=== PATIENT | male | born 1985 | race Caucasian/White ===

== ENCOUNTER 2017-05-28 12:26 | Emergency (ER) | payer MEDICARE, MEDICAID ==
[~2017-05-28] VITALS: Ht 167.6 cm; Wt 80.0 kg
[~2017-05-28 12:26] MED LIST: CLIN-79 PO; CYCL-1 PO; DIAZ5TAB PO; GABA600T2 PO; HYDR-569 PO; LORA-269 PO; NAPR500T4 PO; TRAZ150T78 PO
[2017-05-28] MEDS ORDERED: HYDR-569 PO (13:24)
[2017-05-28 14:09] VITALS: BP 121/65
== END 2017-05-28 14:10 | disposition home or self-care (01) ==
LOC: ER 12:27
DX: S80.02XA Contusion of left knee, initial encounter (principal); M25.562 Pain in left knee; G89.29 Other chronic pain; Z88.1 Allergy status to other antibiotic agents; V09.9XXA Pedestrian injured in unspecified transport accident, initial encounter; Y93.89 Activity, other specified; Y92.481 Parking lot as the place of occurrence of the external cause; Y99.9 Unspecified external cause status
CPT/HCPCS: 29505; 73564; 99284

== ENCOUNTER 2017-09-18 18:36 | Emergency (ER) | payer MEDICARE, MEDICAID ==
[~2017-09-18] VITALS: Ht 182781.3 cm; Wt 95.0 kg
[~2017-09-18 18:36] MED LIST changes: +NAPR-996 PO; -NAPR500T4 PO
[2017-09-18] MEDS ORDERED: diphenhydrAMINE 50 mg/ml inj IM ONE (19:35)
[2017-09-18] MEDS ORDERED: LORazepam 2 mg/ml vial IM ONE (19:35)
[2017-09-18] MEDS ORDERED: haloperidol lactate 5mg/ml inj IM ONE (19:35)
[2017-09-18 20:14] LABS: BASOPHILS # (AUTO) 0.1 X10'3 (0-0.2); BASOPHILS % (AUTO) 0.6 % (0-1); EOSINOPHILS # (AUTO) 0.1 X10'3 (0-0.9); EOSINOPHILS % (AUTO) 1.6 % (0-6); HEMATOCRIT 49.5 % (42.0-52.0); LYMPHOCYTES # (AUTO) 2.4 X10'3 (1.1-4.8); LYMPHOCYTES % (AUTO) 26.5 % (21-51); MEAN CORPUSCULAR HEMOGLOBIN 30.8 PG (27.0-31.0); MEAN CORPUSCULAR HGB CONC 34.4 % (33.0-36.5); MEAN CORPUSCULAR VOLUME 89.5 FL (78-98); MEAN PLATELET VOLUME 6.1 FL (7.4-10.4); MONOCYTES # (AUTO) 0.5 X10'3 (0-0.9); MONOCYTES % (AUTO) 5.6 % (2-12); NEUTROPHILS # (AUTO) 5.8 X10'3 (1.8-7.7); NEUTROPHILS % (AUTO) 65.7 % (42-75); PLATELET COUNT 408 X10'3 (140-440); RED BLOOD COUNT 5.53 X10'6 (4.70-6.10); RED CELL DISTRIBUTION WIDTH 12.7 % (11.5-14.5); WHITE BLOOD COUNT 8.9 X10'3 (4.5-11.0)
[2017-09-18] MEDS ORDERED: diphenhydrAMINE 50 mg/ml inj IV ONE (20:20)
[2017-09-18] MEDS ORDERED: LORazepam 2 mg/ml vial IV ONE (20:20)
[2017-09-18] MEDS: haloperidol lactate 5mg/ml inj IM ONE ×2 (20:20→20:23)
[2017-09-18 20:37] LABS: ALANINE AMINOTRANSFERASE 34 U/L (12-78); ALBUMIN 4.4 G/DL (3.4-5.0); ALBUMIN/GLOBULIN RATIO 1.3 (1.1-1.5); ALKALINE PHOSPHATASE 68 IU/L (46-116); ANION GAP 17 (8-16); ASPARTATE AMINO TRANSFERASE 25 U/L (10-37); BILIRUBIN,TOTAL 0.6 MG/DL (0.1-1.0); BLOOD UREA NITROGEN 23 MG/DL (7-18); BUN/CREATININE RATIO 16.7 (5.4-32.0); CALCIUM 9.5 MG/DL (8.5-10.1); CHLORIDE 106 MMOL/L (99-107); CREATININE 1.38 MG/DL (0.60-1.10); ETHANOL < 0.010 GM/DL (0.0-0.010); GLUCOSE 104 MG/DL (70-104); SODIUM 146 MMOL/L (135-145); TOTAL PROTEIN 7.8 G/DL (6.4-8.2); eGFR 59 ML/MIN
[2017-09-18 20:39] LABS: POTASSIUM 3.9 MMOL/L (3.5-5.1)
[2017-09-18] MEDS ORDERED: normal saline 1000ml 1,000 ML IV ONE (20:55)
[2017-09-18 23:54] LABS: CLARITY,URINE CLEAR (Clear); COLOR,URINE YELLOW (Yellow); GLUCOSE, URINE NEGATIVE (Neg); KETONES,URINE TRACE mg/dl (Neg); LEUKOCYTE ESTERASE ,URINE NEGATIVE (Neg); NITRITES, URINE NEGATIVE (Neg); OCCULT BLOOD,URINE TRACE-INTACT (Neg); PROTEIN,URINE NEGATIVE (Neg); UROBILINOGEN,URINE 0.2 E.U/dL (0.2-1.0)
[2017-09-18 23:55] LABS: UA COLLECTION TYPE STRAIGHT CATH
[2017-09-19 00:02] LABS: URINE AMPHETAMINE SCREEN POSITIVE (Neg); URINE BARBITUATE SCREEN NEGATIVE (Neg); URINE BENZODIAZEPINES SCREEN NEGATIVE (Neg); URINE CANNABINOID SCREEN NEGATIVE (Neg); URINE COCAINE SCREEN NEGATIVE (Neg); URINE METHADONE SCREEN NEGATIVE (Neg); URINE OPIATE SCREEN NEGATIVE (Neg); URINE PHENCYCLIDINE SCREEN NEGATIVE (Neg)
[2017-09-19 00:03] LABS: SQUAMOUS EPITHELIAL CELL,UR FEW /LPF (FEW)
[2017-09-19 00:04] LABS: BACTERIA,URINE FEW /HPF (Neg); MUCUS STRANDS FEW /LPF (Neg); WBC,URINE 0-4 /HPF (0-4)
[2017-09-19] MEDS ORDERED: ESCI10TA54 PO (04:34)
[2017-09-19] MEDS ORDERED: VARE1TAB21 PO (04:34)
[2017-09-19] MEDS ORDERED: OLAN5TAB26 PO (04:34)
[2017-09-19] MEDS ORDERED: DEXT20TA6 PO (04:34)
[2017-09-19] MEDS ORDERED: ARIP10TA17 PO (04:34)
[2017-09-19] MEDS ORDERED: SILD100T (04:34)
[2017-09-19] MEDS: dextroamphetamine/amphetamine 10mg tablet PO SCH ×2 (07:30→12:30)
[2017-09-19] MEDS: citalopram 20mg tablet PO SCH (08:00)
[2017-09-19] MEDS ORDERED: aripiprazole 5mg tablet PO SCH (08:00)
[2017-09-19] MEDS: varenicline tartrate 0.5mg tablet PO SCH ×2 (08:00→20:12)
[2017-09-19] MEDS ORDERED: OLANZapine 5mg rapidly disint. tablet PO SCH (08:00)
[2017-09-20] MEDS: citalopram 20mg tablet PO SCH ×2 (08:00→14:25)
[2017-09-20] MEDS: varenicline tartrate 0.5mg tablet PO SCH ×3 (08:00→20:00)
[2017-09-20] MEDS: OLANZapine 5mg rapidly disint. tablet PO SCH ×2 (08:00→14:30)
[2017-09-20] MEDS ORDERED: ziprasidone IM 20mg inj **IM only IM ONE (08:15)
[2017-09-21] MEDS ORDERED: OLANZapine 5mg rapidly disint. tablet PO SCH (08:00)
[2017-09-21] MEDS: varenicline tartrate 0.5mg tablet PO SCH (09:51)
[2017-09-21] MEDS: citalopram 20mg tablet PO SCH (09:51)
[2017-09-21] MEDS ORDERED: CITA20TA19 PO (14:53)
[2017-09-21 15:57] VITALS: BP 104/66
== END 2017-09-21 16:01 | disposition home or self-care (01) ==
LOC: ER 18:36
DX: F31.9 Bipolar disorder, unspecified (principal); F41.9 Anxiety disorder, unspecified; F23 Brief psychotic disorder; N19 Unspecified kidney failure; G89.29 Other chronic pain; Z56.0 Unemployment, unspecified; Z88.1 Allergy status to other antibiotic agents; Z79.899 Other long term (current) drug therapy
CPT/HCPCS: 36415; 80053; 80305; 80320; 81001; 84443; 85025; 96361; 96372; 96374; 96375; 99284; A4353; J1200; J1630; J2060; J7030

== ENCOUNTER 2017-09-21 12:10 | Inpatient (IN) | payer MEDICARE, MEDICAID ==
[~2017-09-21] VITALS: Ht 167.6 cm; Wt 83.4 kg
[~2017-09-21 12:10] MED LIST changes: +ARIP10TA17 PO; -CLIN-79 PO; -CYCL-1 PO; +DEXT20TA6 PO; -DIAZ5TAB PO; +ESCI10TA54 PO; -GABA600T2 PO; -HYDR-569 PO; -LORA-269 PO; -NAPR-996 PO; +OLAN5TAB26 PO; -TRAZ150T78 PO; +VARE1TAB21 PO
[2017-09-21] MEDS ORDERED: CITA20TA19 PO (14:53)
[2017-09-21 16:00] VITALS: BP 132/84
[2017-09-21 19:20] VITALS: BP 90/46
[2017-09-21] MEDS: varenicline tartrate 0.5mg tablet PO SCH (19:21)
[2017-09-21] MEDS: olanzapine 10mg tablet PO SCH (19:21)
[2017-09-22] MEDS: citalopram 20mg tablet PO SCH (07:27)
[2017-09-22] MEDS: varenicline tartrate 0.5mg tablet PO SCH ×2 (07:27→21:23)
[2017-09-22] MEDS: olanzapine 10mg tablet PO SCH ×2 (07:27→21:22)
[2017-09-22 08:00] VITALS: BP 107/67
[2017-09-22 08:38] LABS: CHOL/HDL RATIO 5.7 (0.00-4.99); CHOLESTEROL 212 MG/DL (0-200); HDL CHOLESTEROL 37 MG/DL (35-60); LDL CHOLESTEROL 150 MG/DL (50-100); TRIGLYCERIDES 110 MG/DL (20-135)
[2017-09-22 08:45] LABS: HEMOGLOBIN A1C 5.7 % (4.5-6.2)
[2017-09-22 09:25] LABS: ALANINE AMINOTRANSFERASE 37 U/L (12-78); ALBUMIN 3.4 G/DL (3.4-5.0); ALBUMIN/GLOBULIN RATIO 1.1 (1.1-1.5); ALKALINE PHOSPHATASE 60 IU/L (46-116); ANION GAP 10 (8-16); ASPARTATE AMINO TRANSFERASE 24 U/L (10-37); BILIRUBIN,TOTAL 0.3 MG/DL (0.1-1.0); BLOOD UREA NITROGEN 17 MG/DL (7-18); BUN/CREATININE RATIO 16.8 (5.4-32.0); CALCIUM 8.7 MG/DL (8.5-10.1); CHLORIDE 107 MMOL/L (99-107); CREATININE 1.01 MG/DL (0.60-1.10); GLUCOSE 85 MG/DL (70-104); POTASSIUM 4.2 MMOL/L (3.5-5.1); SODIUM 144 MMOL/L (135-145); TOTAL CARBON DIOXIDE 27.2 MMOL/L (24-32); TOTAL PROTEIN 6.6 G/DL (6.4-8.2); eGFR 85 ML/MIN
[2017-09-22] MEDS: gabapentin 300mg capsule PO SCH ×2 (13:37→21:22)
[2017-09-22 20:10] VITALS: BP 92/45
[2017-09-23 08:00] VITALS: BP 107/66
[2017-09-23] MEDS: varenicline tartrate 0.5mg tablet PO SCH ×2 (08:30→20:35)
[2017-09-23] MEDS: citalopram 20mg tablet PO SCH (08:30)
[2017-09-23] MEDS: gabapentin 300mg capsule PO SCH ×3 (08:30→20:35)
[2017-09-23] MEDS: olanzapine 10mg tablet PO SCH (20:35)
[2017-09-23 20:39] VITALS: BP 108/61
[2017-09-24] MEDS: citalopram 20mg tablet PO SCH (07:41)
[2017-09-24] MEDS: gabapentin 300mg capsule PO SCH ×3 (07:41→20:27)
[2017-09-24] MEDS: varenicline tartrate 0.5mg tablet PO SCH ×2 (07:42→20:27)
[2017-09-24 08:59] VITALS: BP 107/76
[2017-09-24] MEDS: clonazePAM 1mg tablet PO PRN ×3 (10:40→22:49)
[2017-09-24] MEDS: ibuprofen tablet 400 MG TABLET PO PRN (12:29)
[2017-09-24 19:15] VITALS: BP 125/79
[2017-09-24] MEDS: olanzapine 10mg tablet PO SCH (20:27)
[2017-09-25] MEDS: clonazePAM 1mg tablet PO PRN ×3 (07:38→19:36)
[2017-09-25] MEDS: varenicline tartrate 0.5mg tablet PO SCH (07:38)
[2017-09-25] MEDS: gabapentin 300mg capsule PO SCH ×2 (07:38→12:56)
[2017-09-25] MEDS: citalopram 20mg tablet PO SCH (07:38)
[2017-09-25 08:01] VITALS: BP 125/91
[2017-09-25] MEDS ORDERED: OLANZapine 5mg rapidly disint. tablet PO PRN ×2 (15:00→17:00)
[2017-09-25] MEDS ORDERED: LORazepam 1 MG tablet PO ONE ×2 (15:00→17:00)
[2017-09-25] MEDS ORDERED: haloperidol lactate 5mg/ml inj IM ONE ×2 (18:10→18:11)
[2017-09-25] MEDS ORDERED: benztropine 1 mg/ml 2ml ampule IM PRN (18:10)
[2017-09-25] MEDS ORDERED: benztropine 1 mg/ml 2ml ampule IM ONE (18:10)
[2017-09-25] MEDS ORDERED: benztropine 1 mg/ml 2ml ampule ONE (18:11)
[2017-09-25 19:55] VITALS: BP 94/52
[2017-09-26] MEDS: gabapentin 400mg capsule PO SCH ×5 (00:10→21:58)
[2017-09-26] MEDS: OLANZapine 5mg rapidly disint. tablet PO SCH ×2 (08:09→11:37)
[2017-09-26] MEDS: citalopram 20mg tablet PO SCH (08:09)
[2017-09-26] MEDS: clonazePAM 1mg tablet PO PRN (08:15)
[2017-09-26 08:40] VITALS: BP 119/72
[2017-09-26] MEDS ORDERED: clonazePAM 1mg tablet PO PRN (16:00)
[2017-09-26] MEDS: ibuprofen tablet 400 MG TABLET PO PRN (16:30)
[2017-09-26] MEDS: haloperidol lactate 5mg/ml inj IM PRN (17:56)
[2017-09-26] MEDS ORDERED: magnesium hydroxide 30ml (MOM) UD suspension PO PRN (19:15)
[2017-09-26] MEDS ORDERED: mag hydrox/Alum hydrox/simeth 30ml oral suspension PO PRN (19:15)
[2017-09-26] MEDS ORDERED: acetaminophen 325mg tablet PO PRN (19:15)
[2017-09-26 19:47] VITALS: BP 94/50
[2017-09-26] MEDS ORDERED: clonazePAM 1mg tablet PO SCH (20:00)
[2017-09-26] MEDS ORDERED: olanzapine 10mg tablet PO SCH (21:00)
[2017-09-26 22:00] VITALS: BP 115/70
[2017-09-26] MEDS: acetaminophen 325mg tablet PO PRN (22:03)
[2017-09-27 07:48] VITALS: BP 136/72
[2017-09-27] MEDS: gabapentin 400mg capsule PO SCH ×3 (08:20→20:08)
[2017-09-27] MEDS: clonazePAM 1mg tablet PO SCH ×3 (08:21→20:08)
[2017-09-27] MEDS: ibuprofen tablet 400 MG TABLET PO PRN (08:21)
[2017-09-27] MEDS: haloperidol 5mg tablet PO SCH ×2 (08:21→14:19)
[2017-09-27] MEDS: citalopram 20mg tablet PO SCH (08:21)
[2017-09-27] MEDS ORDERED: diphenhydrAMINE 50 mg/ml inj IM SCH (11:05)
[2017-09-27] MEDS ORDERED: diphenhydrAMINE 50 mg/ml inj IM PRN (11:25)
[2017-09-27] MEDS: haloperidol lactate 5mg/ml inj IM PRN (15:39)
[2017-09-27] MEDS: LIDOcaine 5% patch TP SCH (15:40)
[2017-09-27 16:03] VITALS: BP 112/72
[2017-09-27 19:15] VITALS: BP 126/79
[2017-09-27] MEDS: OLANZapine 5mg rapidly disint. tablet PO SCH (20:09)
[2017-09-27] MEDS: acetaminophen 325mg tablet PO PRN (20:10)
[2017-09-28] MEDS: haloperidol 5mg tablet PO SCH ×3 (07:30→12:33)
[2017-09-28 08:00] VITALS: BP 116/72
[2017-09-28] MEDS: LIDOcaine 5% patch TP SCH (08:59)
[2017-09-28] MEDS: clonazePAM 1mg tablet PO SCH ×3 (08:59→20:48)
[2017-09-28] MEDS: citalopram 20mg tablet PO SCH (08:59)
[2017-09-28] MEDS: gabapentin 400mg capsule PO SCH ×3 (08:59→20:48)
[2017-09-28 19:19] VITALS: BP 119/73
[2017-09-28] MEDS: OLANZapine 5mg rapidly disint. tablet PO SCH (20:48)
[2017-09-29 08:00] VITALS: BP 135/83
[2017-09-29] MEDS: citalopram 20mg tablet PO SCH (09:25)
[2017-09-29] MEDS: gabapentin 400mg capsule PO SCH ×3 (09:25→20:21)
[2017-09-29] MEDS: clonazePAM 1mg tablet PO SCH ×3 (09:25→18:08)
[2017-09-29] MEDS: haloperidol 5mg tablet PO SCH ×2 (09:25→13:19)
[2017-09-29] MEDS: LIDOcaine 5% patch TP SCH (09:26)
[2017-09-29] MEDS ORDERED: clonazePAM 1mg tablet PO ONE (10:30)
[2017-09-29 20:02] VITALS: BP 105/65
[2017-09-29] MEDS: ibuprofen tablet 400 MG TABLET PO PRN (20:20)
[2017-09-29] MEDS: haloperidol 5mg tablet PO PRN (20:21)
[2017-09-29] MEDS: OLANZapine 5mg rapidly disint. tablet PO SCH (20:21)
[2017-09-30 08:00] VITALS: BP 133/81
[2017-09-30] MEDS: LIDOcaine 5% patch TP SCH (08:24)
[2017-09-30] MEDS: citalopram 20mg tablet PO SCH (08:24)
[2017-09-30] MEDS: clonazePAM 1mg tablet PO SCH ×3 (08:24→21:00)
[2017-09-30] MEDS: gabapentin 400mg capsule PO SCH ×3 (08:25→21:30)
[2017-09-30] MEDS: haloperidol 5mg tablet PO SCH ×2 (08:25→13:17)
[2017-09-30] MEDS: haloperidol 5mg tablet PO PRN (17:11)
[2017-09-30 20:00] VITALS: BP 122/62
[2017-09-30] MEDS: OLANZapine 5mg rapidly disint. tablet PO SCH (21:00)
[2017-09-30 21:58] VITALS: BP 93/50
[2017-10-01] MEDS ORDERED: GABA-534 PO (07:48)
[2017-10-01] MEDS ORDERED: CITA20TA11 PO (07:48)
[2017-10-01] MEDS ORDERED: CLON0.5T23 PO (07:48)
[2017-10-01] MEDS ORDERED: OLAN5TAB29 PO (07:48)
[2017-10-01] MEDS ORDERED: HALO5TAB PO (07:48)
[2017-10-01] MEDS: haloperidol 5mg tablet PO SCH (07:51)
[2017-10-01 08:00] VITALS: BP 133/87
[2017-10-01] MEDS: clonazePAM 1mg tablet PO SCH (08:07)
[2017-10-01] MEDS: gabapentin 400mg capsule PO SCH (08:07)
[2017-10-01] MEDS: citalopram 20mg tablet PO SCH (08:07)
== END 2017-10-01 10:45 | disposition home or self-care (01) | DRG 885 ==
LOC: ADULT MH 12:10
PROVIDERS: ADMIT Psychiatry & Neurology Psychiatry; ATTEND Psychiatry & Neurology Psychiatry
DX: F29 Unspecified psychosis not due to a substance or known physiological condition (principal); E87.0 Hyperosmolality and hypernatremia; M54.9 Dorsalgia, unspecified; F20.9 Schizophrenia, unspecified; F31.9 Bipolar disorder, unspecified; F41.9 Anxiety disorder, unspecified; G89.29 Other chronic pain; N28.9 Disorder of kidney and ureter, unspecified; F15.10 Other stimulant abuse, uncomplicated; Z79.899 Other long term (current) drug therapy; Z87.891 Personal history of nicotine dependence; Z78.1 Physical restraint status
CPT/HCPCS: 36415; 71110; 80053; 80061; 83036; 87070; 99285; J0515; J1200; J1630; J3490

== ENCOUNTER 2018-12-25 14:34 | Emergency (ER) | payer MEDICARE ==
[~2018-12-25] VITALS: Ht 167.6 cm; Wt 82.7 kg
[~2018-12-25 14:34] MED LIST changes: -ARIP10TA17 PO; +ARIP5TAB4 PO; +CITA20TA19 PO; +CLON0.5T12 PO; -DEXT20TA6 PO; -ESCI10TA54 PO; +GABA-534 PO; +HALO5TAB PO; -OLAN5TAB26 PO; +OLAN5TAB5 PO; -VARE1TAB21 PO
[2018-12-25 16:00] LABS: BASOPHILS % (AUTO) 0.5 % (0-1); EOSINOPHILS # (AUTO) 0.2 X10'3 (0-0.9); EOSINOPHILS % (AUTO) 2.1 % (0-6); HEMATOCRIT 42.7 % (42.0-52.0); LYMPHOCYTES % (AUTO) 26.9 % (21-51); MEAN CORPUSCULAR HEMOGLOBIN 30.9 PG (27.0-31.0); MEAN CORPUSCULAR VOLUME 88.2 FL (78-98); MEAN PLATELET VOLUME 6.2 FL (7.4-10.4); MONOCYTES # (AUTO) 0.4 X10'3 (0-0.9); MONOCYTES % (AUTO) 5.3 % (2-12); NEUTROPHILS # (AUTO) 4.9 X10'3 (1.8-7.7); NEUTROPHILS % (AUTO) 65.2 % (42-75); PLATELET COUNT 400 X10'3 (140-440); RED BLOOD COUNT 4.85 X10'6 (4.70-6.10); RED CELL DISTRIBUTION WIDTH 13.5 % (11.5-14.5); WHITE BLOOD COUNT 7.5 X10'3 (4.5-11.0)
[2018-12-25 16:24] LABS: ALANINE AMINOTRANSFERASE 60 U/L (12-78); ALBUMIN 3.6 G/DL (3.4-5.0); ALBUMIN/GLOBULIN RATIO 1.1 (1.1-1.5); ALKALINE PHOSPHATASE 97 IU/L (46-116); ANION GAP 9 (8-16); ASPARTATE AMINO TRANSFERASE 30 U/L (10-37); BILIRUBIN,TOTAL 0.2 MG/DL (0.1-1.0); BLOOD UREA NITROGEN 13 MG/DL (7-18); BUN/CREATININE RATIO 12.6 (5.4-32.0); CHLORIDE 103 MMOL/L (99-107); CREATININE 1.03 MG/DL (0.60-1.10); GLUCOSE 99 MG/DL (70-104); POTASSIUM 3.8 MMOL/L (3.5-5.1); SODIUM 138 MMOL/L (135-145); TOTAL CARBON DIOXIDE 26.2 MMOL/L (24-32); TOTAL PROTEIN 6.8 G/DL (6.4-8.2); eGFR 82 ML/MIN
[2018-12-25 16:59] LABS: PARTIAL THROMBOPLASTIN TIME 27 SECONDS (22-32)
--- NOTE | 2018-12-25 18:13 | NUR ---
pt is resting quietly on gurney
--- NOTE | 2018-12-25 18:43 | NUR ---
pt c/o chest pain, "I have anxiety...lots of stress in my life...just started to see an therapist because I have anxiety", pt denies recent drug/ETOH use, waiting to be evaluated by provider, rags laborer at bedside to eval pt
[2018-12-25] MEDS ORDERED: clonazePAM 1mg tablet PO ONE (21:05)
[2018-12-25] MEDS ORDERED: diazepam 5mg tablet PO ONE (21:15)
[2018-12-25 21:16] VITALS: BP 118/87
[2018-12-25] MEDS ORDERED: CLON-527 PO (21:16)
== END 2018-12-25 21:30 | disposition home or self-care (01) ==
LOC: ER 14:35
DX: F41.9 Anxiety disorder, unspecified (principal); R07.89 Other chest pain; F15.10 Other stimulant abuse, uncomplicated; G89.29 Other chronic pain; F31.9 Bipolar disorder, unspecified; F20.9 Schizophrenia, unspecified; Z59.0 Homelessness; Z56.0 Unemployment, unspecified; Z88.1 Allergy status to other antibiotic agents; Z79.899 Other long term (current) drug therapy
CPT/HCPCS: 36415; 71045; 80053; 84484; 85025; 85610; 85730; 93005; 99284

== ENCOUNTER 2018-12-27 09:40 | Emergency (ER) | payer MEDICARE ==
[~2018-12-27] VITALS: Ht 167.6 cm; Wt 86.4 kg
[~2018-12-27 09:40] MED LIST changes: +CLON-527 PO
[2018-12-27] MEDS ORDERED: acetaminophen 325mg tablet PO ONE (09:45)
[2018-12-27] MEDS ORDERED: PANT-47 PO (10:42)
[2018-12-27 11:00] VITALS: BP 122/52
--- NOTE | 2018-12-27 11:24 | NUR ---
Attempted to DC patient on 3 occasions and patient was insistant that he could not leave with out being given valium. MD informed and security contacted to assist in discharging patient. MD spoke with patient and pt was discharged with security standing by.
== END 2018-12-27 11:28 | disposition home or self-care (01) ==
LOC: ER 09:40
DX: R07.89 Other chest pain (principal); G89.29 Other chronic pain; F41.9 Anxiety disorder, unspecified; F31.9 Bipolar disorder, unspecified; F20.9 Schizophrenia, unspecified; F17.200 Nicotine dependence, unspecified, uncomplicated; F15.90 Other stimulant use, unspecified, uncomplicated; Z59.0 Homelessness; Z56.0 Unemployment, unspecified; Z88.1 Allergy status to other antibiotic agents; Z79.899 Other long term (current) drug therapy
CPT/HCPCS: 71046; 93005; 99283

== ENCOUNTER 2019-03-13 07:40 | Emergency (ER) | payer MEDICARE, OTHER ==
[~2019-03-13] VITALS: Ht 167.6 cm; Wt 70.0 kg
[~2019-03-13 07:40] MED LIST changes: +ARIP5TAB14 PO; -ARIP5TAB4 PO; -CLON0.5T12 PO; +CLON0.5T4 PO; +PANT-47 PO
[2019-03-13] MEDS ORDERED: CefTRIAXone 2gm/D5W 50ml 50 ML IV ONE (09:20)
[2019-03-13] MEDS ORDERED: vancomycin/NS 1 GM ADD-VANTAGE 250 ML IV ONE (09:20)
[2019-03-13 09:56] LABS: BASOPHILS % (AUTO) 0.7 % (0-1); EOSINOPHILS # (AUTO) 0.2 X10'3 (0-0.9); EOSINOPHILS % (AUTO) 3.6 % (0-6); HEMATOCRIT 44.9 % (42.0-52.0); HEMOGLOBIN 15.8 g/dl (14.0-17.9); LYMPHOCYTES # (AUTO) 1.2 X10'3 (1.1-4.8); LYMPHOCYTES % (AUTO) 18.3 % (21-51); MEAN CORPUSCULAR HGB CONC 35.1 g/dL (33.0-36.5); MEAN CORPUSCULAR VOLUME 88.2 FL (78-98); MONOCYTES # (AUTO) 0.3 X10'3 (0-0.9); MONOCYTES % (AUTO) 5.2 % (2-12); NEUTROPHILS # (AUTO) 4.8 X10'3 (1.8-7.7); NEUTROPHILS % (AUTO) 72.2 % (42-75); PLATELET COUNT 400 X10'3 (140-440); RED BLOOD COUNT 5.09 X10'6 (4.70-6.10); RED CELL DISTRIBUTION WIDTH 12.8 % (11.5-14.5); WHITE BLOOD COUNT 6.6 X10'3 (4.5-11.0)
[2019-03-13 09:59] LABS: ALANINE AMINOTRANSFERASE 34 U/L (12-78); ALBUMIN 3.8 G/DL (3.4-5.0); ALBUMIN/GLOBULIN RATIO 1.3 (1.1-1.5); ALKALINE PHOSPHATASE 65 IU/L (46-116); ANION GAP 8 (8-16); ASPARTATE AMINO TRANSFERASE 20 U/L (10-37); BILIRUBIN,TOTAL 0.4 MG/DL (0.1-1.0); BLOOD UREA NITROGEN 16 MG/DL (7-18); BUN/CREATININE RATIO 15.5 (5.4-32.0); CALCIUM 9.3 MG/DL (8.5-10.1); CHLORIDE 107 MMOL/L (99-107); CREATININE 1.03 MG/DL (0.60-1.10); GLUCOSE 104 MG/DL (70-104); POTASSIUM 4.3 MMOL/L (3.5-5.1); SODIUM 142 MMOL/L (135-145); TOTAL CARBON DIOXIDE 27.1 MMOL/L (24-32); TOTAL PROTEIN 6.8 G/DL (6.4-8.2); eGFR 82 ML/MIN
[2019-03-13] MEDS ORDERED: CEPH-572 PO (10:09)
[2019-03-13] MEDS ORDERED: ONDA4TAB6 PO (10:09)
[2019-03-13] MEDS ORDERED: SULF1TAB49 PO (10:09)
[2019-03-13] MEDS ORDERED: HYDR-3965 PO (10:09)
[2019-03-13] MEDS ORDERED: ketorolac tromethamine 15mg/ml inj. IV ONE (11:00)
[2019-03-13] MEDS ORDERED: ondansetron/PF 4mg/2ml inj IV ONE (12:55)
[2019-03-13] MEDS ORDERED: HYDROcodone/acetaminophen 10/325mg tab PO ONE (12:55)
[2019-03-13 13:17] VITALS: BP 130/80
== END 2019-03-13 13:18 | disposition home or self-care (01) ==
LOC: ER 07:40
DX: S63.592A Other specified sprain of left wrist, initial encounter (principal); S61.217A Laceration without foreign body of left little finger without damage to nail, initial encounter; G89.29 Other chronic pain; F41.9 Anxiety disorder, unspecified; F31.9 Bipolar disorder, unspecified; F20.9 Schizophrenia, unspecified; F15.90 Other stimulant use, unspecified, uncomplicated; Z56.0 Unemployment, unspecified; Z59.0 Homelessness; Z88.1 Allergy status to other antibiotic agents; Z79.2 Long term (current) use of antibiotics; Z79.899 Other long term (current) drug therapy; W26.0XXA Contact with knife, initial encounter; Y93.89 Activity, other specified; Y92.89 Other specified places as the place of occurrence of the external cause; Y99.8 Other external cause status
CPT/HCPCS: 29125; 36415; 73110; 73130; 80053; 84145; 85025; 96365; 96368; 96375; 99284; J0696; J1885; J2405; J3370

== ENCOUNTER 2019-03-16 01:10 | Emergency (ER) | payer MEDICARE, OTHER ==
[~2019-03-16] VITALS: Ht 167.6 cm; Wt 76.3 kg
[~2019-03-16 01:10] MED LIST changes: -ARIP5TAB14 PO; +CEPH-572 PO; -CITA20TA19 PO; -CLON-527 PO; +CLON0.5T12 PO; -CLON0.5T4 PO; -GABA-534 PO; -HALO5TAB PO; +HYDR-3965 PO; -OLAN5TAB5 PO; +ONDA4TAB6 PO; -PANT-47 PO; +SULF1TAB49 PO
[2019-03-16] MEDS ORDERED: morphine 4 MG/ML inj SYRINge IM ONE (01:55)
[2019-03-16] MEDS ORDERED: LORazepam 1 MG tablet PO ONE (01:55)
[2019-03-16] MEDS ORDERED: morphine 10mg/ml inj. IM ONE (01:55)
--- NOTE | 2019-03-16 02:12 | NUR ---
medicated pt with 4 mg of morphine im to right glute. also medicated with ativan for anxiety. will reassess once medication takes effect .
--- NOTE | 2019-03-16 03:04 | NUR ---
pt left arm splint and sling removed as ordered . pt rates pain 3-4 out of [address] Davis aware sling and splint have been removed. pt updated poc awaitkiah talbert at this time
[2019-03-16] MEDS ORDERED: HYDR-4353 PO (04:04)
--- NOTE | 2019-03-16 04:15 | NUR ---
pts sling and splint reapplied by instrumentation technologist. pt ambulatory to restroom without assist/difficulty. Pt currently awaiting transport home via his .
[2019-03-16 04:51] VITALS: BP 138/57
== END 2019-03-16 04:25 | disposition home or self-care (01) ==
LOC: ER 01:11
DX: R07.89 Other chest pain (principal); M79.602 Pain in left arm; G89.29 Other chronic pain; F41.9 Anxiety disorder, unspecified; F31.9 Bipolar disorder, unspecified; F20.9 Schizophrenia, unspecified; F17.200 Nicotine dependence, unspecified, uncomplicated; F15.90 Other stimulant use, unspecified, uncomplicated; Z56.0 Unemployment, unspecified; Z59.0 Homelessness; Z88.1 Allergy status to other antibiotic agents; Z79.2 Long term (current) use of antibiotics; Z79.899 Other long term (current) drug therapy
CPT/HCPCS: 29125; 71045; 93005; 96372; 99283; J2270

== ENCOUNTER 2019-03-17 14:22 | Emergency (ER) | payer MEDICARE, OTHER ==
[~2019-03-17] VITALS: Ht 167.6 cm; Wt 74.1 kg
[~2019-03-17 14:22] MED LIST changes: +HYDR-4353 PO
[2019-03-17 15:10] VITALS: BP 136/72
[2019-03-17] MEDS ORDERED: HYDROcodone/acetaminophen 5mg/325mg tablet PO ONE (16:20)
== END 2019-03-17 17:42 | disposition home or self-care (01) ==
LOC: ER 14:22
DX: M25.532 Pain in left wrist (principal); M79.602 Pain in left arm; G89.29 Other chronic pain; F15.90 Other stimulant use, unspecified, uncomplicated; Z59.0 Homelessness; Z56.0 Unemployment, unspecified; Z79.899 Other long term (current) drug therapy; Z88.1 Allergy status to other antibiotic agents
CPT/HCPCS: 29125; 99283

== ENCOUNTER 2019-03-19 17:49 | Emergency (ER) | payer MEDICARE, OTHER ==
[~2019-03-19] VITALS: Ht 167.6 cm; Wt 81.0 kg
--- NOTE | 2019-03-19 18:26 | NUR ---
PATIENT HERE FOR 1. A DOCTOR'S NOTE: FOR HIS JOB AT [employer] WHERE HE HAS WORKED FOR THREE MONTHS AND IS CLAIMING WORKERS COMP FOR THIS INJURY 2. ZOFRAN REFILL: HE WAS PRESCRIBED ZOFRAN 4 MG #15 ON 03/13/19 AND STATES THAT "HIS PRESCIPTION DISAPPEARED, MAYBE MY THREW IT OUT BY ACCIDENT" PATIENT DID PICK IT UP FROM [facility] NOTED BY THE LIST HE BROUGHT FROM [facility]. PATIENT FIRST HERE FOR THIS CONDITION ON 03/13/19 AND THEN SEEN ON 03/16 AND 03/17. JBN PRESENTS IN A SLING AND WHAT APPEARS TO BE AN ULNAR GUTTER SPINT OR CAST IN A SLING: MANAGER CREDIT WNL, COLOR PINK, AND HE CAN WIGGLE AND FEEL ALL FINGERS: HE CAN NOT MOVE HIS PINKIS FINGER BUT CAN FEEL IT
--- NOTE | 2019-03-19 18:33 | NUR ---
PATIENT HAS AN APPOINTMENT AT [facility] THIS COMING FRIDAY DR RUIZ IS OUT OF TOWN.
[2019-03-19] MEDS ORDERED: L. R1CAP4 PO (19:08)
[2019-03-19] MEDS ORDERED: ONDA4TAB6 PO (19:08)
[2019-03-19 19:18] VITALS: BP 126/65
== END 2019-03-19 19:24 | disposition home or self-care (01) ==
LOC: ER 17:50
DX: Z00.00 Encounter for general adult medical examination without abnormal findings (principal); G89.29 Other chronic pain; F31.9 Bipolar disorder, unspecified; F41.9 Anxiety disorder, unspecified; F20.9 Schizophrenia, unspecified; F15.90 Other stimulant use, unspecified, uncomplicated; Z88.1 Allergy status to other antibiotic agents; Z79.899 Other long term (current) drug therapy; Z79.2 Long term (current) use of antibiotics; Z59.0 Homelessness; Z56.0 Unemployment, unspecified
CPT/HCPCS: 99283

== ENCOUNTER 2019-03-22 12:31 | Emergency (ER) | payer MEDICARE, OTHER ==
[~2019-03-22] VITALS: Ht 167.6 cm; Wt 72.7 kg
[~2019-03-22 12:31] MED LIST changes: +L. R1CAP4 PO
[2019-03-22 12:56] VITALS: BP 136/92
--- NOTE | 2019-03-22 14:05 | NUR ---
pt co anxiety due to traumatizing event at home as per pt he saw" my sleeping with some one else and my dad cornea came out ".
[2019-03-22] MEDS ORDERED: LORazepam 1 MG tablet PO ONE (14:25)
== END 2019-03-22 14:57 | disposition home or self-care (01) ==
LOC: ER 12:32
DX: F41.9 Anxiety disorder, unspecified (principal); F31.9 Bipolar disorder, unspecified; F20.9 Schizophrenia, unspecified; G89.29 Other chronic pain; F15.90 Other stimulant use, unspecified, uncomplicated; Z88.1 Allergy status to other antibiotic agents; Z79.899 Other long term (current) drug therapy; Z59.0 Homelessness; Z56.0 Unemployment, unspecified
CPT/HCPCS: 99284

== ENCOUNTER 2019-03-30 15:44 | Emergency (ER) | payer MEDICAID, MEDICARE, OTHER ==
[~2019-03-30] VITALS: Ht 167.6 cm; Wt 82.3 kg
[~2019-03-30 15:44] MED LIST changes: -CEPH-572 PO; -SULF1TAB49 PO
--- NOTE | 2019-03-30 16:03 | NUR ---
PATIENT HAS INJURY TO LEFT HAND 3 WEEKS AGO, WORK-RELATED INJURY. PATIENT CUT TENDON ON LEFT 5TH FINGER AND WAS DX WITH INFECTION IN THE HAND 10 DAYS LATER. PATIENT IS OUT OF ANTIBIOTICS NOW AND THE URGENT CARE PROVIDER SUGGESTED THAT HE COME TO THE ER FOR EVALUATION.
[2019-03-30] MEDS ORDERED: HYDROcodone/acetaminophen 5mg/325mg tablet PO ONE (16:25)
[2019-03-30 16:55] LABS: BASOPHILS # (AUTO) 0.1 X10'3 (0-0.2); BASOPHILS % (AUTO) 1.1 % (0-1); EOSINOPHILS # (AUTO) 0.1 X10'3 (0-0.9); EOSINOPHILS % (AUTO) 1.7 % (0-6); HEMATOCRIT 45.3 % (42.0-52.0); HEMOGLOBIN 15.9 g/dl (14.0-17.9); LYMPHOCYTES # (AUTO) 1.6 X10'3 (1.1-4.8); LYMPHOCYTES % (AUTO) 19.1 % (21-51); MEAN CORPUSCULAR HEMOGLOBIN 31.4 PG (27.0-31.0); MEAN CORPUSCULAR VOLUME 89.7 FL (78-98); MEAN PLATELET VOLUME 5.8 FL (7.4-10.4); MONOCYTES # (AUTO) 0.5 X10'3 (0-0.9); MONOCYTES % (AUTO) 5.7 % (2-12); NEUTROPHILS # (AUTO) 6.2 X10'3 (1.8-7.7); NEUTROPHILS % (AUTO) 72.4 % (42-75); PLATELET COUNT 429 X10'3 (140-440); RED BLOOD COUNT 5.05 X10'6 (4.70-6.10); RED CELL DISTRIBUTION WIDTH 13.1 % (11.5-14.5); WHITE BLOOD COUNT 8.6 X10'3 (4.5-11.0)
[2019-03-30 17:12] LABS: PARTIAL THROMBOPLASTIN TIME 26 SECONDS (22-32)
[2019-03-30 17:25] LABS: ALANINE AMINOTRANSFERASE 44 U/L (12-78); ALBUMIN/GLOBULIN RATIO 1.2 (1.1-1.5); ALKALINE PHOSPHATASE 64 IU/L (46-116); ANION GAP 11 (8-16); ASPARTATE AMINO TRANSFERASE 25 U/L (10-37); BILIRUBIN,TOTAL 0.2 MG/DL (0.1-1.0); BLOOD UREA NITROGEN 20 MG/DL (7-18); BUN/CREATININE RATIO 16.9 (5.4-32.0); C-REACTIVE PROTEIN 0.23 MG/DL (0.0-0.5); CALCIUM 8.9 MG/DL (8.5-10.1); CHLORIDE 105 MMOL/L (99-107); CREATININE 1.18 MG/DL (0.60-1.10); GLUCOSE 102 MG/DL (70-104); SODIUM 140 MMOL/L (135-145); TOTAL PROTEIN 7.3 G/DL (6.4-8.2); eGFR 70 ML/MIN
[2019-03-30 17:35] LABS: POTASSIUM 3.7 MMOL/L (3.5-5.1)
[2019-03-30] MEDS ORDERED: HYDR-3965 PO (17:50)
[2019-03-30 18:21] VITALS: BP 143/97
== END 2019-03-30 18:22 | disposition home or self-care (01) ==
LOC: ER 15:44
DX: S66.303A Unspecified injury of extensor muscle, fascia and tendon of left middle finger at wrist and hand level, initial encounter (principal); G89.29 Other chronic pain; F41.9 Anxiety disorder, unspecified; F31.9 Bipolar disorder, unspecified; F20.9 Schizophrenia, unspecified; F15.90 Other stimulant use, unspecified, uncomplicated; Z88.1 Allergy status to other antibiotic agents; Z79.899 Other long term (current) drug therapy; Z56.0 Unemployment, unspecified; Z59.0 Homelessness; W18.39XA Other fall on same level, initial encounter; Y93.89 Activity, other specified; Y92.89 Other specified places as the place of occurrence of the external cause; Y99.8 Other external cause status
CPT/HCPCS: 29125; 36415; 73130; 80053; 84145; 85025; 85610; 85730; 86140; 99283; 99284

== ENCOUNTER 2019-06-01 14:02 | Emergency (ER) | payer MEDICARE, OTHER ==
[~2019-06-01] VITALS: Ht 180.3 cm; Wt 80.0 kg
[~2019-06-01 14:02] MED LIST changes: -CLON0.5T12 PO; +CLON0.5T4 PO; -HYDR-3965 PO; -HYDR-4353 PO; +etomidate 2mg/ml inj. ONE; +rocuronium 10mg/ml inj IV ONE
[2019-06-01 14:36] LABS: BASOPHILS % (AUTO) 0.6 % (0-1); EOSINOPHILS % (AUTO) 0.6 % (0-6); HEMATOCRIT 43.4 % (42.0-52.0); HEMOGLOBIN 15.3 g/dl (14.0-17.9); LYMPHOCYTES # (AUTO) 1.2 X10'3 (1.1-4.8); LYMPHOCYTES % (AUTO) 17.2 % (21-51); MEAN CORPUSCULAR HEMOGLOBIN 31.8 PG (27.0-31.0); MEAN CORPUSCULAR HGB CONC 35.3 g/dL (33.0-36.5); MEAN CORPUSCULAR VOLUME 89.9 FL (78-98); MEAN PLATELET VOLUME 5.8 FL (7.4-10.4); MONOCYTES # (AUTO) 0.3 X10'3 (0-0.9); MONOCYTES % (AUTO) 4.5 % (2-12); NEUTROPHILS # (AUTO) 5.6 X10'3 (1.8-7.7); NEUTROPHILS % (AUTO) 77.1 % (42-75); PLATELET COUNT 344 X10'3 (140-440); RED BLOOD COUNT 4.83 X10'6 (4.70-6.10); WHITE BLOOD COUNT 7.3 X10'3 (4.5-11.0)
--- NOTE | 2019-06-01 14:37 | NUR ---
Pt found sitting upright on the end of gurney but is not awake and interactive. Pt assisted by three staff members back to bed, respiratory rate diminished to approximately 6-8 breaths per minute. Pt's skin color is more holland and pale than upon arrival to the ED. Pt is not responding painful stimuli. Dr. Rider to the room to assess the patient.
[2019-06-01] MEDS ORDERED: naloxone 2mg/2ml inj ONE (14:41)
--- NOTE | 2019-06-01 14:45 | NUR ---
Narcan 1mg IV given as ordered by Dr. Rider for decreased respiratory status following the overdose. Pt shows no signs of status change following the narcan dose IVP.
--- NOTE | 2019-06-01 14:46 | NUR ---
Pt moved from ED bed 14 to bed 3 and preparations for intubation are being made. RSI to protect the patient's airway at this time.
[2019-06-01 14:53] LABS: ALANINE AMINOTRANSFERASE 24 U/L (12-78); ALBUMIN 3.9 G/DL (3.4-5.0); ALBUMIN/GLOBULIN RATIO 1.4 (1.1-1.5); ALKALINE PHOSPHATASE 61 IU/L (46-116); ANION GAP 11 (8-16); ASPARTATE AMINO TRANSFERASE 15 U/L (10-37); BILIRUBIN,TOTAL 0.2 MG/DL (0.1-1.0); BLOOD UREA NITROGEN 15 MG/DL (7-18); BUN/CREATININE RATIO 15.5 (5.4-32.0); CALCIUM 8.7 MG/DL (8.5-10.1); CHLORIDE 105 MMOL/L (99-107); CREATININE 0.97 MG/DL (0.60-1.10); ETHANOL 0.035 GM/DL (0.0-0.010); GLUCOSE 106 MG/DL (70-104); POTASSIUM 3.5 MMOL/L (3.5-5.1); SODIUM 140 MMOL/L (135-145); TOTAL CARBON DIOXIDE 23.8 MMOL/L (24-32); TOTAL PROTEIN 6.6 G/DL (6.4-8.2); eGFR 88 ML/MIN
--- NOTE | 2019-06-01 14:53 | NUR ---
70 TYRONE 1453. 20 ETOM 1454. HYPEROXYGENING, HR 99, 100% 135/88. 7.5 TUBE SIZE. RT X2 RN X2. MD SRINIVASAN INTUBATING AT 1455. COLOR CHANGE NOTED.
[2019-06-01] MEDS ORDERED: fentaNYL/PF 50MCG/1 ML 2ML syringe IV ONE ×3 (15:00→16:15)
[2019-06-01] MEDS ORDERED: MIDAZolam 5mg/ml 2ml vial IV ONE (15:00)
[2019-06-01 15:02] LABS: ACETAMINOPHEN < 2.0 UG/ML (10-30)
[2019-06-01] MEDS ORDERED: propofol 1000mg/100ml bottle 100 ML IV SCH (15:03)
--- NOTE | 2019-06-01 15:03 | NUR ---
poison control contacted, advised that the peak of this drug is 1.5-5hrs and the following instructions were given -QTC >500 give mag -maximize electrolytes -QRS>120 give sodium bicarb -continuous cardiac monitoring, seizures are highly likely so give benzos in this event and get baseline EKG.
--- NOTE | 2019-06-01 15:15 | NUR ---
RADHA IN, OG IN
--- NOTE | 2019-06-01 15:17 | NUR ---
POISION CONTROL CALLED RECOMMENDATION GIVEN TO
--- NOTE | 2019-06-01 15:38 | NUR ---
TEMP 94.5 BEAR HUGGER PLACED ON PATIENT
[2019-06-01 15:41] LABS: ABG BASE EXCESS -5.3 mmol/L (-2.0-3.0); ABG HCO3 18.3 mmol/L (22.0-26.0); ABG OXYGEN SATURATION 98.5 % (95-98); ABG PCO2 (T) 28.4 mmHg (35.0-45.0); ABG PH (T) 7.419 (7.350-7.450); ABG PO2 (T) 155.3 mmHg (83-108); ALLEN'S TEST Positive; FCOHb 1.8 % (0.5-1.5); FO2Hb 96.7 % (94-100); MINUTE VOLUME 11 L/min; PATIENT TEMPERATURE 35.3; PEEP 5 cm H2O; RESPIRATORY RATE 16 b/min; RESPIRATORY RATE (OBSERVED) 22 b/min; TIDAL VOLUME 450 mL; TOTAL HEMOGLOBIN 14.5 G/dl (14.0-17.9)
[2019-06-01 15:41] LABS: TRIGLYCERIDES 112 MG/DL (20-135)
[2019-06-01] MEDS ORDERED: LORazepam 2 mg/ml vial ONE (15:53)
[2019-06-01 15:54] LABS: URINE AMPHETAMINE SCREEN POSITIVE (Neg); URINE BARBITUATE SCREEN NEGATIVE (Neg); URINE BENZODIAZEPINES SCREEN NEGATIVE (Neg); URINE CANNABINOID SCREEN NEGATIVE (Neg); URINE COCAINE SCREEN NEGATIVE (Neg); URINE METHADONE SCREEN NEGATIVE (Neg); URINE OPIATE SCREEN NEGATIVE (Neg); URINE PHENCYCLIDINE SCREEN NEGATIVE (Neg)
[2019-06-01] MEDS ORDERED: LORazepam 2 mg/ml vial IV ONE ×4 (15:55→16:10)
--- NOTE | 2019-06-01 15:57 | NUR ---
PT IS HAVING SEIZURE. MD AT BEDSIDE. 2 ATIVAN GIVEN IV
--- NOTE | 2019-06-01 16:00 | NUR ---
PATIENT CONTINUES TO EXPERIENCE SEIZURE, DR SRINIVASAN AT BEDSIDE, ATIVEN 4MG IVP GIVEN, PATIENT ABLE TO RESPOND TO VERBAL STIMULI, WHEN MD ASKED IF HE IS "OKAY" PATIENT OPENED EYES AND SHAKED HIS HEAD "NO".
--- NOTE | 2019-06-01 16:05 | NUR ---
DR SOLARES IN TO ASSESS PATIENT, PATIENT CONTINUES TO EXPERIENCE SEIZURES, DR SOLARES CONSULTING WITH DR SRINIVASAN.
[2019-06-01] MEDS ORDERED: fentaNYL/PF 50MCG/1 ML 2ML syringe ONE (16:13)
[2019-06-01] MEDS ORDERED: ketamine 50 mg/ml 10ml vial IV ONE (16:15)
[2019-06-01] MEDS ORDERED: ketamine 10mg/ml 20ml inj 100 MG in normal saline 100ml IV soln 90 ML IV ONE (16:20)
--- NOTE | 2019-06-01 16:23 | NUR ---
I OVERODE 100MG OF FENTNYL AND 100MG OF KETAMINE PER VERBAL ORDER, DR SRINIVASAN
--- NOTE | 2019-06-01 16:28 | NUR ---
PT SEEMS AT THIS TIME TO HAVE STOPPED SEIZING
--- NOTE | 2019-06-01 16:45 | NUR ---
KETAMINE DRIP STARTED
[2019-06-01] MEDS: potassium Cl 10 mEq/100mL bag IV SCH ×3 (16:50→19:38)
--- NOTE | 2019-06-01 17:35 | NUR ---
KETAMINE IS INCREASED TO 4
[2019-06-01] MEDS ORDERED: normal saline 1000ml 1,000 ML IV ONE (17:55)
--- NOTE | 2019-06-01 17:58 | NUR ---
PT IS STABLE. BP 80/53 MD AWARE. PT IS GETTING A BOLUS NOW OF NS 1000CC
--- NOTE | 2019-06-01 17:58 | NUR ---
KETAMINE INCREASED TO 5
--- NOTE | 2019-06-01 18:26 | NUR ---
REPORT GIVEN TO RN
--- NOTE | 2019-06-01 18:56 | NUR ---
Patient resting comfortably with lights off and limited noise. Patient becomes agitated attempting to flail arms and swinging legs about even with light tough.
--- NOTE | 2019-06-01 19:27 | NUR ---
Family at bedside and updated on POC.
[2019-06-01 20:30] VITALS: BP 109/71
== END 2019-06-01 20:34 | disposition short-term general hospital (02) ==
LOC: ER 14:03
DX: T42.6X2A Poisoning by other antiepileptic and sedative-hypnotic drugs, intentional self-harm, initial encounter (principal); R41.82 Altered mental status, unspecified; J96.00 Acute respiratory failure, unspecified whether with hypoxia or hypercapnia; G89.29 Other chronic pain; F41.9 Anxiety disorder, unspecified; F31.9 Bipolar disorder, unspecified; F20.9 Schizophrenia, unspecified; F15.90 Other stimulant use, unspecified, uncomplicated; Z59.0 Homelessness; Z56.0 Unemployment, unspecified; Z79.899 Other long term (current) drug therapy; Z88.1 Allergy status to other antibiotic agents; Y92.89 Other specified places as the place of occurrence of the external cause
CPT/HCPCS: 31500; 36415; 36600; 71045; 80053; 80305; 80320; 80329; 82803; 83735; 84478; 85018; 85025; 87070; 93005; 96361; 96374; 96375; 96376; 99291; J2060; J2250; J2704; J3010; J3480; J7030; 94002; 94760; J2310

== ENCOUNTER 2020-03-02 07:30 | Emergency (ER) | payer MEDICARE ==
[~2020-03-02] VITALS: Ht 170.2 cm; Wt 96.5 kg
[~2020-03-02 07:30] MED LIST changes: -L. R1CAP4 PO; -ONDA4TAB6 PO; -etomidate 2mg/ml inj. ONE; -rocuronium 10mg/ml inj IV ONE
[2020-03-02] MEDS ORDERED: acetaminophen 325mg tablet PO ONE (08:55)
[2020-03-02] MEDS ORDERED: ibuprofen tablet 400 MG TABLET PO ONE (08:55)
[2020-03-02 09:11] VITALS: BP 145/95
== END 2020-03-02 09:12 | disposition home or self-care (01) ==
LOC: ER 07:31
DX: S66.912A Strain of unspecified muscle, fascia and tendon at wrist and hand level, left hand, initial encounter (principal); G89.29 Other chronic pain; F41.9 Anxiety disorder, unspecified; F31.9 Bipolar disorder, unspecified; F20.9 Schizophrenia, unspecified; F15.90 Other stimulant use, unspecified, uncomplicated; Z59.0 Homelessness; Z56.0 Unemployment, unspecified; Z88.0 Allergy status to penicillin; Z79.899 Other long term (current) drug therapy; X58.XXXA Exposure to other specified factors, initial encounter; Y93.89 Activity, other specified; Y92.89 Other specified places as the place of occurrence of the external cause; Y99.8 Other external cause status
CPT/HCPCS: 73130; 99283

== ENCOUNTER 2020-03-09 08:07 | Emergency (ER) | payer MEDICARE ==
[~2020-03-09] VITALS: Ht 167.6 cm; Wt 86.4 kg
[2020-03-09 08:23] VITALS: BP 153/101
== END 2020-03-09 08:47 | disposition home or self-care (01) ==
LOC: ER 08:08
DX: F31.9 Bipolar disorder, unspecified (principal); G89.29 Other chronic pain; F41.9 Anxiety disorder, unspecified; F20.9 Schizophrenia, unspecified; F15.90 Other stimulant use, unspecified, uncomplicated; Z59.0 Homelessness; Z00.00 Encounter for general adult medical examination without abnormal findings; Z56.0 Unemployment, unspecified; Z88.8 Allergy status to other drugs, medicaments and biological substances; Z79.899 Other long term (current) drug therapy
CPT/HCPCS: 99281

== ENCOUNTER 2020-03-09 09:17 | Emergency (ER) | payer MEDICARE ==
[~2020-03-09] VITALS: Ht 167.6 cm; Wt 88.6 kg
[2020-03-09 09:25] VITALS: BP 151/100
--- NOTE | 2020-03-09 09:35 | NUR ---
AISHA HOPSON ON THE PHONE WITH PT .
== END 2020-03-09 10:46 | disposition home or self-care (01) ==
LOC: ER 09:17
DX: F31.9 Bipolar disorder, unspecified (principal); G89.29 Other chronic pain; F41.9 Anxiety disorder, unspecified; F20.9 Schizophrenia, unspecified; F15.90 Other stimulant use, unspecified, uncomplicated; Z59.0 Homelessness; Z00.00 Encounter for general adult medical examination without abnormal findings; Z56.0 Unemployment, unspecified; Z88.8 Allergy status to other drugs, medicaments and biological substances; Z79.899 Other long term (current) drug therapy
CPT/HCPCS: 99281; 99283

== ENCOUNTER 2020-07-13 17:27 | Emergency (ER) | payer MEDICARE ==
[~2020-07-13] VITALS: Ht 167.6 cm; Wt 86.4 kg
[2020-07-13 17:34] VITALS: BP 143/109
== END 2020-07-13 19:16 | disposition home or self-care (01) ==
LOC: ER 17:28
DX: F15.10 Other stimulant abuse, uncomplicated (principal); G89.29 Other chronic pain; F41.9 Anxiety disorder, unspecified; F31.9 Bipolar disorder, unspecified; F20.9 Schizophrenia, unspecified; F12.90 Cannabis use, unspecified, uncomplicated; Z72.89 Other problems related to lifestyle; Z59.0 Homelessness; Z56.0 Unemployment, unspecified; Z88.1 Allergy status to other antibiotic agents; Z79.899 Other long term (current) drug therapy
CPT/HCPCS: 99281

== ENCOUNTER 2020-08-15 06:01 | Emergency (ER) | payer MEDICARE ==
[~2020-08-15] VITALS: Ht 167.6 cm; Wt 93.8 kg
[2020-08-15 06:04] VITALS: BP 134/60
[2020-08-15] MEDS ORDERED: ACET-3068 PO (06:49)
[2020-08-15] MEDS ORDERED: CLIN150C2 PO (06:49)
[2020-08-15] MEDS ORDERED: clindamycin 150mg capsule PO ONE (06:55)
== END 2020-08-15 07:03 | disposition home or self-care (01) ==
LOC: ER 06:01
DX: K08.89 Other specified disorders of teeth and supporting structures (principal); G89.29 Other chronic pain; F41.9 Anxiety disorder, unspecified; F31.9 Bipolar disorder, unspecified; F20.9 Schizophrenia, unspecified; F17.200 Nicotine dependence, unspecified, uncomplicated; F15.90 Other stimulant use, unspecified, uncomplicated; Z59.0 Homelessness; Z56.0 Unemployment, unspecified; Z88.1 Allergy status to other antibiotic agents; Z79.899 Other long term (current) drug therapy
CPT/HCPCS: 99283

== ENCOUNTER 2020-08-24 13:06 | Emergency (ER) | payer MEDICARE ==
[~2020-08-24] VITALS: Ht 167.6 cm; Wt 90.0 kg
[~2020-08-24 13:06] MED LIST changes: +ACET-3068 PO; +CLIN150C2 PO
[2020-08-24 13:26] VITALS: BP 140/80
--- NOTE | 2020-08-24 17:27 | NUR ---
called x 1 no answer
== END 2020-08-24 18:05 | disposition left against medical advice (07) ==
LOC: ER 13:06
DX: K08.89 Other specified disorders of teeth and supporting structures (principal); Z53.21 Procedure and treatment not carried out due to patient leaving prior to being seen by health care provider

== ENCOUNTER 2020-10-21 14:47 | Emergency (ER) | payer MEDICARE ==
[~2020-10-21] VITALS: Ht 177.8 cm; Wt 118.2 kg
[~2020-10-21 14:47] MED LIST changes: -ACET-3068 PO; -CLIN150C2 PO
[2020-10-21] MEDS ORDERED: normal saline 1000ML IV soln IVB ONE (15:00)
[2020-10-21 15:13] VITALS: BP 139/97
--- NOTE | 2020-10-21 15:15 | NUR ---
PT REFUSED TO ANSWER QUESTIONS TO DR COLEY, ONCE LEFT PT GOT AGGITATED AND STATED HE WANTED TO LEAVE. CALLED SECURITY FOR ESCORT. PT STATED HE WAS ON A SPIRITUAL JOURNEY WITH GOD AND WAS INTERUPTED. PT STATES HE DOES NOT WANT IV FLUIDS ONCE HOOKED UP AND AFTER LABS DRAWN. PT INDEIFFERENT ABOUT STAYING TO BE SEEN AND STATED HE DOESNT NEED ANYTHING. PT AGREED TO HAVE BUD PASS TO GET BACK TO CAR AND ONCE IV REMOVED AND BUS PASS GIVEN TO PT, PT STATED HE NEEDS TO BE SEEN AND LAYED BACK ON BED. DR SIU STATED TO AWAIT FOR LAB RESULTS.
[2020-10-21 15:21] LABS: BASOPHILS # (AUTO) 0.1 X10'3 (0-0.2); BASOPHILS % (AUTO) 0.8 % (0-1); EOSINOPHILS # (AUTO) 0.1 X10'3 (0-0.9); EOSINOPHILS % (AUTO) 0.8 % (0-6); HEMATOCRIT 46.4 % (42.0-52.0); HEMOGLOBIN 16.2 g/dl (14.0-17.9); LYMPHOCYTES # (AUTO) 1.8 X10'3 (1.1-4.8); MEAN CORPUSCULAR HEMOGLOBIN 31.2 PG (27.0-31.0); MEAN CORPUSCULAR HGB CONC 34.8 g/dL (33.0-36.5); MEAN CORPUSCULAR VOLUME 89.6 FL (78-98); MEAN PLATELET VOLUME 5.9 FL (7.4-10.4); MONOCYTES # (AUTO) 0.5 X10'3 (0-0.9); MONOCYTES % (AUTO) 7.1 % (2-12); NEUTROPHILS # (AUTO) 4.5 X10'3 (1.8-7.7); NEUTROPHILS % (AUTO) 65.3 % (42-75); PLATELET COUNT 390 X10'3 (140-440); RED BLOOD COUNT 5.18 X10'6 (4.70-6.10); RED CELL DISTRIBUTION WIDTH 12.9 % (11.5-14.5); WHITE BLOOD COUNT 6.9 X10'3 (4.5-11.0)
[2020-10-21 15:35] LABS: ALANINE AMINOTRANSFERASE 27 U/L (12-78); ALBUMIN/GLOBULIN RATIO 1.3 (1.1-1.5); ALKALINE PHOSPHATASE 75 IU/L (46-116); ANION GAP 10 (8-16); ASPARTATE AMINO TRANSFERASE 13 U/L (10-37); BILIRUBIN,TOTAL 0.8 MG/DL (0.1-1.0); BLOOD UREA NITROGEN 23 MG/DL (7-18); CALCIUM 9.1 MG/DL (8.5-10.1); CHLORIDE 106 MMOL/L (99-107); CREATININE 1.35 MG/DL (0.60-1.10); ETHANOL < 0.010 GM/DL (0.0-0.010); GLUCOSE 86 MG/DL (70-104); POTASSIUM 4.2 MMOL/L (3.5-5.1); SODIUM 142 MMOL/L (135-145); TOTAL CARBON DIOXIDE 26.5 MMOL/L (24-32); TOTAL PROTEIN 7.2 G/DL (6.4-8.2); eGFR 59 ML/MIN
== END 2020-10-21 16:20 | disposition left against medical advice (07) ==
LOC: ER 14:48
DX: Z00.00 Encounter for general adult medical examination without abnormal findings (principal); F15.90 Other stimulant use, unspecified, uncomplicated; G89.29 Other chronic pain; F41.9 Anxiety disorder, unspecified; F31.9 Bipolar disorder, unspecified; F20.9 Schizophrenia, unspecified; Z59.0 Homelessness; Z56.0 Unemployment, unspecified; Z88.1 Allergy status to other antibiotic agents; Z79.899 Other long term (current) drug therapy
CPT/HCPCS: 36415; 80053; 80320; 85025; 93005; 99284

== ENCOUNTER 2020-10-25 13:03 | Emergency (ER) | payer MEDICARE ==
[~2020-10-25] VITALS: Ht 167.6 cm; Wt 86.5 kg
[2020-10-25] MEDS ORDERED: risperiDONE 2mg tablet PO ONE (13:40)
[2020-10-25] MEDS ORDERED: LORazepam 1 MG tablet PO ONE (13:40)
[2020-10-25 13:48] LABS: BASOPHILS % (AUTO) 0.3 % (0-1); EOSINOPHILS % (AUTO) 0.3 % (0-6); LYMPHOCYTES # (AUTO) 0.7 X10'3 (1.1-4.8); LYMPHOCYTES % (AUTO) 8.4 % (21-51); MEAN CORPUSCULAR HEMOGLOBIN 31.1 PG (27.0-31.0); MEAN CORPUSCULAR HGB CONC 34.1 g/dL (33.0-36.5); MEAN PLATELET VOLUME 5.7 FL (7.4-10.4); MONOCYTES # (AUTO) 0.3 X10'3 (0-0.9); MONOCYTES % (AUTO) 3.3 % (2-12); NEUTROPHILS # (AUTO) 7.7 X10'3 (1.8-7.7); NEUTROPHILS % (AUTO) 87.7 % (42-75); PLATELET COUNT 331 X10'3 (140-440); RED BLOOD COUNT 4.51 X10'6 (4.70-6.10); RED CELL DISTRIBUTION WIDTH 13.1 % (11.5-14.5); WHITE BLOOD COUNT 8.7 X10'3 (4.5-11.0)
[2020-10-25 13:57] LABS: CLARITY,URINE CLOUDY (Clear); COLOR,URINE YELLOW (Yellow); GLUCOSE, URINE NEGATIVE (Neg); KETONES,URINE >=80 mg/dl (Neg); LEUKOCYTE ESTERASE ,URINE NEGATIVE (Neg); NITRITES, URINE NEGATIVE (Neg); OCCULT BLOOD,URINE NEGATIVE (Neg); PH,URINE 5.5 (4.8-8.0); PROTEIN,URINE NEGATIVE (Neg); UROBILINOGEN,URINE 0.2 E.U/dL (0.2-1.0)
[2020-10-25 14:02] LABS: UA COLLECTION TYPE CLN CATCH MIDSTREAM
[2020-10-25 14:03] LABS: ALANINE AMINOTRANSFERASE 21 U/L (12-78); ALBUMIN 3.2 G/DL (3.4-5.0); ALBUMIN/GLOBULIN RATIO 1.2 (1.1-1.5); ALKALINE PHOSPHATASE 64 IU/L (46-116); ANION GAP 12 (8-16); ASPARTATE AMINO TRANSFERASE 13 U/L (10-37); BILIRUBIN,TOTAL 0.7 MG/DL (0.1-1.0); BLOOD UREA NITROGEN 18 MG/DL (7-18); CALCIUM 7.7 MG/DL (8.5-10.1); CHLORIDE 108 MMOL/L (99-107); GLUCOSE 72 MG/DL (70-104); POTASSIUM 3.9 MMOL/L (3.5-5.1); SODIUM 138 MMOL/L (135-145); TOTAL PROTEIN 5.8 G/DL (6.4-8.2); eGFR > 90 ML/MIN
[2020-10-25 14:03] LABS: BACTERIA,URINE NONE SEEN /HPF (Neg); MUCUS STRANDS MODERATE /LPF (Neg); RBC,URINE NONE SEEN /HPF (0-2); SQUAMOUS EPITHELIAL CELL,UR FEW /LPF (FEW)
[2020-10-25 14:09] LABS: URINE AMPHETAMINE SCREEN POSITIVE (Neg); URINE BARBITUATE SCREEN NEGATIVE (Neg); URINE BENZODIAZEPINES SCREEN POSITIVE (Neg); URINE CANNABINOID SCREEN NEGATIVE (Neg); URINE COCAINE SCREEN NEGATIVE (Neg); URINE METHADONE SCREEN NEGATIVE (Neg); URINE OPIATE SCREEN NEGATIVE (Neg); URINE PHENCYCLIDINE SCREEN NEGATIVE (Neg)
[2020-10-25 14:11] LABS: ETHANOL < 0.010 GM/DL (0.0-0.010)
--- NOTE | 2020-10-25 14:24 | NUR ---
PACKET FAXED TO [facility]
--- NOTE | 2020-10-25 19:00 | NUR ---
Pt resting quietly, respirations normal, no s/s of distress.
--- NOTE | 2020-10-25 20:00 | NUR ---
Pt resting quietly, respirations normal, no s/s of distress.
--- NOTE | 2020-10-25 21:00 | NUR ---
Pt resting quietly, respirations normal, no s/s of distress.
--- NOTE | 2020-10-25 22:00 | NUR ---
Pt resting quietly, respirations normal, no s/s of distress.
--- NOTE | 2020-10-25 22:55 | NUR ---
Pt resting quietly, respirations normal, no s/s of distress.
--- NOTE | 2020-10-26 | NUR ---
Pt resting quietly, respirations normal, no s/s of distress.
--- NOTE | 2020-10-26 01:00 | NUR ---
Pt resting quietly, respirations normal, no s/s of distress.
--- NOTE | 2020-10-26 02:20 | NUR ---
Pt resting quietly, respirations normal, no s/s of distress.
--- NOTE | 2020-10-26 03:20 | NUR ---
Pt resting quietly, respirations normal, no s/s of distress.
--- NOTE | 2020-10-26 04:00 | NUR ---
Pt resting quietly, respirations normal, no s/s of distress.
--- NOTE | 2020-10-26 05:02 | NUR ---
Pt resting quietly, respirations normal, no s/s of distress.
--- NOTE | 2020-10-26 08:07 | NUR ---
pt is awake and accepting of breakfast, no needs at this time
--- NOTE | 2020-10-26 08:31 | NUR ---
pt was pretending to be asleep when LIVIA Betts came to eval, he was reminded that his hold would be up soon and that he should cooperate or he would be released soon, he "woke up" went to the bathroom, and is now talking to Roxane
--- NOTE | 2020-10-26 08:47 | NUR ---
pt is on a 5150, after eval
--- NOTE | 2020-10-26 09:00 | NUR ---
pt is supine, eyes closed, no needs at this time
--- NOTE | 2020-10-26 10:04 | NUR ---
"" Irene Pratt called and checked on , would like a call back from mental health [phone]
--- NOTE | 2020-10-26 10:06 | NUR ---
pt is supine in bed, eyes closed, regular breathing present, no needs at this time
--- NOTE | 2020-10-26 11:00 | NUR ---
pt is asleep, no needs at this time
--- NOTE | 2020-10-26 12:17 | NUR ---
pt is asleep, no needs at this time
--- NOTE | 2020-10-26 13:08 | NUR ---
pt is supine in bed, awakened for lunch
--- NOTE | 2020-10-26 13:10 | NUR ---
pt talking to on the phone
--- NOTE | 2020-10-26 14:10 | NUR ---
pt is resting in bed, no needs at this time, calm
--- NOTE | 2020-10-26 15:59 | NUR ---
pt is asleep, no needs at this time
--- NOTE | 2020-10-26 15:59 | NUR ---
pt is at bedside, he is awake and calm, no needs at this time
--- NOTE | 2020-10-26 16:43 | NUR ---
AT [facility], PT ASKING FOR NICOTINE PATCH.
--- NOTE | 2020-10-26 16:44 | NUR ---
Diandra marroquin in [facility] - 10/26/20 at 1715 by HLAKOURTNEY PT SLEEPING ON BACK.
[2020-10-26] MEDS ORDERED: nicotine 7mg patch - 24hr TD SCH (16:45)
[2020-10-26] MEDS ORDERED: RISP0.5T65 PO (16:58)
[2020-10-26] MEDS ORDERED: DIAZ10TA4 PO (16:58)
[2020-10-26] MEDS ORDERED: diazepam 5mg tablet PO PRN (17:20)
--- NOTE | 2020-10-26 17:25 | NUR ---
RELIEVED PRIMARY NURSE FOR A BREAK THE PATIENT WAS AWAKE LAYING ON HIS BACK WITH HIS AT THE BEDSIDE. THEY WERE VISITING NICELY. THE PATIENT'S RESPIRATIONS APPEARED NORMAL AND HE WAS NOT IN ANY DISTRESS AT THIS TIME.
--- NOTE | 2020-10-26 17:45 | NUR ---
PT TALKING WITH AT BEDSIDE
[2020-10-26] MEDS ORDERED: hydrOXYzine 25 MG tablet PO PRN (18:50)
[2020-10-26] MEDS ORDERED: risperiDONE 0.5mg tablet PO ONE (19:00)
--- NOTE | 2020-10-26 19:11 | NUR ---
One to one with the patient with his at the bedside. He was initially guarded with the information he shared and denied that he was hearing voices but his stated otherwise. The patient was encouarged to be honest with his symptoms so that he could receive appropriate treatment while he was here. He then admitted to voices and was anxious and distressed. He reports the voices are telling him to hurt himself but he doesn't want to. He stated that he is seeing shiney light objects and "the good voices tell me they are a new species" He was unsure of his mental health diagnoisis but his stated that have been talked to about both schizophrenia and bipolar but they are unsure. The also stated that he suffers from PTSD from childhood trauma. He has been getting a month invega IM through a local provider but has not had an injection in the past several months 2nd to a lapse in their insurance. He does admit to recent meth use as well. Spoke with Kristian LEONARD regarding medications and orders received. Spoke with conveyor line battery charger on [facility] regarding patient and they are reviewing his packet for possible admit.
--- NOTE | 2020-10-26 19:37 | NUR ---
Client to be admitted to [facility] for Psychosis NOS for Psychosis NOS.
[2020-10-26] MEDS ORDERED: risperiDONE 2mg tablet PO ONE (20:00)
[2020-10-26] MEDS ORDERED: risperiDONE 0.5mg tablet PO SCH (20:00)
--- NOTE | 2020-10-26 20:19 | NUR ---
The patient appears to be sleeping
--- NOTE | 2020-10-26 21:00 | NUR ---
The patient appears to be sleeping. He has been accepted to [facility] and is waiting transfer
[2020-10-26 21:55] VITALS: BP 102/65
[2020-10-27] MEDS ORDERED: NO HOME MEDS (10:48)
== END 2020-10-26 22:05 ==
LOC: ER 13:05
DX: F29 Unspecified psychosis not due to a substance or known physiological condition (principal); Z20.822 Contact with and (suspected) exposure to COVID-19; R45.851 Suicidal ideations; F15.10 Other stimulant abuse, uncomplicated; F17.200 Nicotine dependence, unspecified, uncomplicated; G89.29 Other chronic pain; F31.9 Bipolar disorder, unspecified; F20.9 Schizophrenia, unspecified; F41.9 Anxiety disorder, unspecified; Z59.0 Homelessness; Z56.0 Unemployment, unspecified; Z88.1 Allergy status to other antibiotic agents; Z79.899 Other long term (current) drug therapy
CPT/HCPCS: 36415; 80053; 80305; 80320; 81001; 84443; 85025; 87635; 99285; C9803

== ENCOUNTER 2020-10-26 20:02 | Inpatient (IN) | payer MEDICARE ==
[~2020-10-26] VITALS: Ht 167.6 cm; Wt 83.9 kg
[~2020-10-26 20:02] MED LIST changes: -CLON0.5T4 PO; +DIAZ10TA4 PO; +RISP0.5T65 PO
[2020-10-26 22:26] VITALS: BP 102/65
--- NOTE | 2020-10-27 03:47 | NUR ---
NURSING ADMISSION NOTE Pt brought up to the unit from ER overflow on 10/26/20 at 2215. 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 Patient now having increasing suicidal thoughts. Patient does not have a specific plan. Patient is also not been taking his medications. States it has probably been 2 to 3 weeks since he had his last medications. Patient reports methamphetamine use 4 days ago. Denies any other medical concerns. Patient states he has a history of suicide attempts, but will not specify any details. Pt is currently homeless.
[2020-10-27] MEDS ORDERED: magnesium hydroxide 30ml (MOM) UD suspension PO PRN (05:25)
[2020-10-27] MEDS ORDERED: NICOTINE POLACRILEX 2 MG LOZENGE BC PRN (05:25)
[2020-10-27] MEDS ORDERED: mag hydrox/Alum hydrox/simeth 30ml oral suspension PO PRN (05:25)
[2020-10-27] MEDS ORDERED: acetaminophen 325mg tablet PO PRN ×2 (05:25)
[2020-10-27] MEDS ORDERED: loperamide 2mg capsule PO PRN (05:25)
[2020-10-27] MEDS ORDERED: traZODone 50mg tablet PO PRN (05:25)
[2020-10-27 07:56] VITALS: BP 112/61
[2020-10-27] MEDS: nicotine 21mg patch - 24 hr TD SCH (08:22)
[2020-10-27] MEDS ORDERED: NO HOME MEDS (10:48)
[2020-10-27] MEDS: LORazepam 1 MG tablet PO PRN ×2 (11:01→18:28)
--- NOTE | 2020-10-27 13:30 | NUR ---
Nursing Progress Note: Legal hold: 5150 Client on involuntary status for GD Report received from nurse Blake RN with use of SBAR Why are they here: Pt brought up to the unit from ER overflow on 10/26/20 at 2215. 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 Patient now having increasing suicidal thoughts. Patient does not have a specific plan. Patient is also not been taking his medications. States it has probably been 2 to 3 weeks since he had his last medications. Patient reports methamphetamine use 4 days ago. Denies any other medical concerns. Patient states he has a history of suicide attempts, but will not specify any details. Pt is currently homeless. Assessment What has happened this shift: Pt appeared fatigued this morning. He was encouraged to get up for breakfast and he did. Pt put on his sunglasses before coming to breakfast. Asked pt if he has light sensitive eyes or gets migraines. Pt replied, "something like that." Pt was cooperative with a physical assessment. Attempted a mental health assessment after breakfast. Pt was guarded and reluctant to answer questions though did answer some. Pt denied depression or SI. Pt denied AH. When asked about VH, pt replied, "all the time." Asked pt to describe his visual hallucinations. Pt stated, "they move really fast...they think they're colorful but they're not...they're dark." Asked pt if this is the reason why he wears the sunglasses. Pt replied, "yes, they keep them out of my soul." Pt did not have any psych meds ordered for this morning, only a nicotine patch which he accepted. Spoke with bellows charger assembler about the med rec. She reported that the provider did not wish to restart the Risperdal as he plans on possibly ordering an JACKSON, Perseris. Pt approached this RN before lunch to ask for some medications. Pt had some difficulty describing what he felt he needed medication for. Pt stated that he needed something strong, "Seroquel works...Thorazine is better." Medicated pt with PRN Ativan 1 mg at 1101. Pt is anxiously awaiting speaking with the doctor today. S/I, H/I: Pt denies. A/VH: +VH Sleep: Pt slept 7.75 hours last night per noc shift report. ADL's: Independent Group attendance: No Were meds taken: No routine psych meds ordered this morning, took PRN Ativan 1 mg and a nicotine patch. Any med S/E: N/A Mental Status Exam Appearance: Disheveled younger appearing man with messy, choppy brown hair and black iridescent sunglasses. Eye contact: Poor to fair. Behavior: Restless, mostly isolative to self and room. Speech: Minimal, clear, audible. Mood: Anxious Affect: Guarded, anxious. Thought process: Possibly some thought blocking. Thought Content: He needs some strong medication, the sunglasses keep the fast moving dark beings from getting into his soul. Cognition: A/O X 4 Insight: Fair Judgment: Fair Interventions PRN's used: Ativan 1 mg Therapeutic interventions: 1:1 assessment, establishment of rapport, encouraged pt to express his thoughts and feelings, therapeutic communication, active listening, ensured contract for safety, encouraged pt to come out of room to meals, Q 15 minute safety checks. Restraints/seclusion/emergency medication: None Justification of Continued Inpatient Treatment: Pt reports he has been off his meds for over 3 weeks, he has been having AH/VH and intermittent SI. He has recently used meth and he is homeless. Pt needs crisis interruption and stabilization with medication adjustment and monitoring in a safe and therapeutic environment until stable.
[2020-10-27] MEDS ORDERED: hydrOXYzine 25 MG tablet PO PRN (16:35)
[2020-10-27 19:00] VITALS: BP 122/79
[2020-10-27] MEDS: mirtazapine 15mg tablet PO SCH (20:08)
[2020-10-27] MEDS: risperiDONE 2mg tablet PO SCH (20:08)
--- NOTE | 2020-10-27 23:51 | NUR ---
Nursing Progress Note: Legal hold: 5150 Client on involuntary status for GD Report received from nurse Lou ALCANTARA with use of SBAR Why are they here: Pt brought up to the unit from ER overflow on 10/26/20 at 2215. 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 Patient now having increasing suicidal thoughts. Patient does not have a specific plan. Patient is also not been taking his medications. States it has probably been 2 to 3 weeks since he had his last medications. Patient reports methamphetamine use 4 days ago. Denies any other medical concerns. Patient states he has a history of suicide attempts, but will not specify any details. Pt is currently homeless. Assessment What has happened this shift: Pt approaches life underwriter at shift change and states, "I need meds now." Property Custodian asks how he is feeling and what medications he is referring to. He responds, "I need all the meds I can get, all my meds." Pt cannot seem to describe to life underwriter how he feels, but is standing in the doorway with sunglasses on fidgeting nervously. Property Custodian offers pt ativan and educated him on the medication. PT takes the ativan with good effect. PT is cooperative with 1:1 and states he is still hearing AH. S/I, H/I: Pt denies. A/VH: +VH Sleep: see sleep hours ADL's: Independent Group attendance: No Were meds taken: yes Any med S/E: N/A Mental Status Exam Appearance: Disheveled younger appearing man with messy, choppy brown hair and black iridescent sunglasses. Eye contact: Poor to fair. Behavior: Restless, mostly isolative to self and room. Speech: Minimal, clear, audible. Mood: Anxious Affect: Guarded, anxious. Thought process: Possibly some thought blocking. Thought Content: He needs some strong medication, the sunglasses keep the fast moving dark beings from getting into his soul. Cognition: A/O X 4 Insight: Fair Judgment: Fair Interventions PRN's used: Ativan 1 mg Therapeutic interventions: 1:1 assessment, establishment of rapport, encouraged pt to express his thoughts and feelings, therapeutic communication, active listening, ensured contract for safety, encouraged pt to come out of room to meals, Q 15 minute safety checks. Restraints/seclusion/emergency medication: None Justification of Continued Inpatient Treatment: Pt reports he has been off his meds for over 3 weeks, he has been having AH/VH and intermittent SI. He has recently used meth and he is homeless. Pt needs crisis interruption and stabilization with medication adjustment and monitoring in a safe and therapeutic environment until stable.
[2020-10-28 07:51] VITALS: BP 106/66
[2020-10-28] MEDS: risperiDONE 2mg tablet PO SCH ×2 (08:11→20:51)
[2020-10-28] MEDS: nicotine 21mg patch - 24 hr TD SCH (08:28)
[2020-10-28 10:42] LABS: CHOL/HDL RATIO 5.2 (0.00-4.99); CHOLESTEROL 194 MG/DL (0-200); HDL CHOLESTEROL 37 MG/DL (35-60); LDL CHOLESTEROL 119 MG/DL (50-100); TRIGLYCERIDES 229 MG/DL (20-135)
[2020-10-28 10:44] LABS: HEMOGLOBIN A1C 5.4 % (4.5-6.2)
[2020-10-28] MEDS: LORazepam 1 MG tablet PO PRN ×2 (13:43→20:52)
--- NOTE | 2020-10-28 14:12 | NUR ---
Nursing Progress Note: Legal hold: 5150 Client on involuntary status for GD Report received from nurse Blake RN with use of SBAR Why are they here: Pt brought up to the unit from ER overflow on 10/26/20 at 2215. 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 Patient now having increasing suicidal thoughts. Patient does not have a specific plan. Patient is also not been taking his medications. States it has probably been 2 to 3 weeks since he had his last medications. Patient reports methamphetamine use 4 days ago. Denies any other medical concerns. Patient states he has a history of suicide attempts, but will not specify any details. Pt is currently homeless. Assessment What has happened this shift: Pt was up for breakfast then returned immediately back to bed. Pt reported that he felt tired this morning. Pt denied depression, SI/HI/AH/VH. Pt appeared anxious and restless after lunch. Pt wandered the unit wearing his dark sunglasses with the iridescent lenses. Pt approached this RN after lunch to request some Ativan. PRN Ativan 1 mg was given at 1343. Again asked pt if he was having any symptoms specifically AH or VH. Pt again denied symptoms. Yesterday pt reported that he wore his dark glasses to keep the fast moving dark beings he saw from getting into his soul. Asked pt if he wasn't seeing anything unusual why he was still wearing his dark sunglasses. Pt replied, "to protect them." This RN assumed he meant to protect his eyes. Asked him to protect them from what? Pt answered, "from everything." S/I, H/I: Pt denies. A/VH: Pt denies though continues to wear his dark sunglasses on the unit. Sleep: Pt slept 8 hours last night per noc shift report. ADL's: Independent Group attendance: No groups today. Were meds taken: Yes Any med S/E: Pt reported feeling tired this morning. Mental Status Exam Appearance: Younger appearing man dressed in green unit scrubs with disheveled brown hair sticking up and black iridescent sunglasses. Eye contact: Poor to fair though hard to tell as pt usually wears his sunglasses on the unit. Behavior: Restless, mostly isolative to self. Speech: Minimal, clear, audible. Mood: Anxious Affect: Guarded, anxious. Thought process: May be minimizing symptoms. Thought Content: He's tired. Cognition: A/O X 3 Insight: Poor Judgment: Fair Interventions PRN's used: Ativan 1 mg Therapeutic interventions: 1:1 assessment, establishment of rapport, encouraged pt to express his thoughts and feelings, therapeutic communication, active listening, ensured contract for safety, encouraged pt to come out of room to meals, Q 15 minute safety checks. Restraints/seclusion/emergency medication: None Justification of Continued Inpatient Treatment: Pt reports he has been off his meds for over 3 weeks, he has been having AH/VH and intermittent SI. He has recently used meth and he is homeless. Pt needs crisis interruption and stabilization with medication adjustment and monitoring in a safe and therapeutic environment until stable.
--- NOTE | 2020-10-28 18:20 | NUR ---
Pt approached this nurse to ask for some medicine. Pt stated he was really anxious. Determined that he was anxious because, "the voices are really bad." It was too soon to give more PRN Ativan so gave Atarax 25 mg.
[2020-10-28] MEDS ORDERED: risperiDONE 0.5mg tablet PO PRN (18:50)
[2020-10-28] MEDS ORDERED: clindamycin 150mg capsule PO SCH (20:00)
[2020-10-28] MEDS: mirtazapine 15mg tablet PO SCH (20:51)
--- NOTE | 2020-10-29 03:21 | NUR ---
Nursing Progress Note: Legal hold: 5150 Client on involuntary status for GD Report received from QUINTON Bolden with use of SBAR Why they are here: Pt brought up to the unit from ER overflow on 10/26/20 at 2215. 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 Patient now having increasing suicidal thoughts. Patient does not have a specific plan. Patient is also not been taking his medications. States it has probably been 2 to 3 weeks since he had his last medications. Patient reports methamphetamine use 4 days ago. Denies any other medical concerns. Patient states he has a history of suicide attempts, but will not specify any details. Pt is currently homeless. Assessment What has happened this shift: Pt was pacing the godinez at shift change. He was wearing sunglasses. When asked how he was doing, he expressed that he was feeling anxious. He was cooperative and took his medication including PRN Ativan and went to bed. S/I, H/I: Pt denies. A/VH: Pt denies though continues to wear his dark sunglasses on the unit. Sleep: See sleep report. ADL's: Independent Group attendance: No groups today. Were meds taken: Yes Any med S/E: none. Mental Status Exam Appearance: Younger appearing man dressed in green unit scrubs with disheveled brown hair sticking up and black iridescent sunglasses. Eye contact: Poor to fair though hard to tell as pt usually wears his sunglasses on the unit. Behavior: Restless, mostly isolative to self. Speech: Minimal, clear, audible. Mood: Anxious Affect: Guarded, anxious. Thought process: May be minimizing symptoms. Thought Content: He's anxious. Cognition: A/O X 3 Insight: Poor Judgment: Fair Interventions PRN's used: Ativan 1 mg Therapeutic interventions: 1:1 assessment, establishment of rapport, encouraged pt to express his thoughts and feelings, therapeutic communication, active listening, ensured contract for safety, encouraged pt to come out of room to meals, Q 15 minute safety checks. Restraints/seclusion/emergency medication: None Justification of Continued Inpatient Treatment: Pt reports he has been off his meds for over 3 weeks, he has been having AH/VH and intermittent SI. He has recently used meth and he is homeless. Pt needs crisis interruption and stabilization with medication adjustment and monitoring in a safe and therapeutic environment until stable.
[2020-10-29] MEDS: nicotine 21mg patch - 24 hr TD SCH (08:12)
[2020-10-29] MEDS: risperiDONE 2mg tablet PO SCH (08:12)
[2020-10-29 08:16] VITALS: BP 112/77
[2020-10-29] MEDS ORDERED: paliperidone palmitate inj 234 MG/1.5 ML SYRINGE IM ONE (11:25)
[2020-10-29] MEDS: LORazepam 1 MG tablet PO PRN (15:24)
--- NOTE | 2020-10-29 15:28 | NUR ---
Nursing Progress Note: Legal hold: Voluntary Client on involuntary status for GD Report received from nurse Blake RN with use of SBAR Why are they here: Pt brought up to the unit from ER overflow on 10/26/20 at 2215. 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 Patient now having increasing suicidal thoughts. Patient does not have a specific plan. Patient is also not been taking his medications. States it has probably been 2 to 3 weeks since he had his last medications. Patient reports methamphetamine use 4 days ago. Denies any other medical concerns. Patient states he has a history of suicide attempts, but will not specify any details. Pt is currently homeless. Assessment What has happened this shift: Pt. asleep at change of shift, medications administered at bedside, pt. rolled over and put his sunglasses on before he took his medications. Pt. slept till approx. 11am when the unit physician assistant production manager did her morning rounds with him. New order for Invega Sustenna 234mg was wrote. Pt. approached nurse at this time requesting injection. Pt. tolerated injection well. Pt. encouraged to attend lunch since he missed breakfast. Pt. stated he is funny about eating and likes his body to find its own nutrients. Pt. denied a/vh but further into our conversation pt. stated he sees and hears things other people dont because he is in another dimension. He knows they are real because he sees them, he stated they are not here now because they are not allowed to enter some territories, this being one they are not welcome in. Pt. states he is here because he had a mental breakdown while driving his car and was unable to see so he pulled over an older lady helped him get to the [facility]. Denies SI. PRN Ativan administer at 1526. Status changed to voluntary and possible discharge today or tomorrow. S/I, H/I: Pt denies. A/VH: Pt denies but continued to speak of objects he hears and sees that other people dont. Sleep: Pt slept 7 hours last night, slept till approx. 11am. ADL's: Independent Group attendance: No groups today. Were meds taken: Yes Any med S/E: None reported Mental Status Exam Appearance: Younger appearing man dressed in street clothes with disheveled brown hair sticking up and black iridescent sunglasses. Eye contact: Difficult to assess due to pt. wearing sunglasses Behavior: isolative to self. Speech: Normal rate, rhythm and volume Mood: Cooperative, pleasant Affect: Calm Thought process: Delusional Thought Content: Ready to discharge home. Cognition: A/O X 3 Insight: Poor Judgment: Fair Interventions PRN's used: Ativan Therapeutic interventions: 1:1 assessment, establishment of rapport, encouraged pt to express his thoughts and feelings, therapeutic communication, active listening, ensured contract for safety, encouraged pt to come out of room to meals, Q 15 minute safety checks. Restraints/seclusion/emergency medication: None Justification of Continued Inpatient Treatment: Pt reports he has been off his meds for over 3 weeks, he has been having AH/VH and intermittent SI. He has recently used meth and he is homeless. Pt needs crisis interruption and stabilization with medication adjustment and monitoring in a safe and therapeutic environment until stable.
[2020-10-29] MEDS ORDERED: RISP0.5T65 PO (16:47)
[2020-10-29] MEDS ORDERED: RISP2TAB85 PO (16:47)
[2020-10-29] MEDS ORDERED: HYDR-3686 PO (16:47)
[2020-10-29] MEDS ORDERED: MIRT15TA8 PO (16:47)
[2020-10-29] MEDS ORDERED: PALI156D IM (16:49)
--- NOTE | 2020-10-29 17:48 | NUR ---
Pt discharged home with Irene at 1725, valuables inventoried and returned. Pt. was happy to be discharging, mood was cooperative and polite. Discharge paperwork reviewed, understood and signed by pt. Pt. to schedule follow up appointment with Dr. Michaels at [facility].
== END 2020-10-29 17:25 | disposition home or self-care (01) | DRG 885 ==
LOC: ADULT MH 21:56
PROVIDERS: ADMIT Psychiatry & Neurology Psychiatry; ATTEND Psychiatry & Neurology Psychiatry
DX: F29 Unspecified psychosis not due to a substance or known physiological condition (principal); R45.851 Suicidal ideations; F15.10 Other stimulant abuse, uncomplicated; F17.200 Nicotine dependence, unspecified, uncomplicated; F20.9 Schizophrenia, unspecified; G89.29 Other chronic pain; M54.9 Dorsalgia, unspecified; Z56.0 Unemployment, unspecified; Z79.899 Other long term (current) drug therapy; Z59.0 Homelessness; Z71.6 Tobacco abuse counseling
CPT/HCPCS: 36415; 80053; 80061; 80305; 80320; 81001; 83036; 84443; 85025; 87081; 87635; C9803; Q0177